=== PATIENT | male | born 1945 | race Caucasian/White ===

== ENCOUNTER 2017-12-31 05:43 | Day surgery (SDC) | payer BC ==
[2017-12-31 06:42] LABS: ADD MAN DIFF? NO
[2017-12-31 06:45] LABS: BASOPHIL # 0.1 10^3/ul (0.0-0.1); BASOPHILS % 1.4 % (0.0-2.0); EOSINOPHILS # 0.2 10^3/ul (0.0-0.5); EOSINOPHILS % 3.1 % (0.0-7.0); HEMATOCRIT 38.4 % (42.0-52.0); HEMOGLOBIN 12.4 g/dl (14.0-18.0); LYMPHOCYTES # 1.6 10^3/ul (0.8-2.9); LYMPHOCYTES % 30.9 % (15.0-51.0); MEAN CORPUSCULAR HEMOGLOBIN 27.6 pg (29.0-33.0); MEAN CORPUSCULAR HGB CONC 32.3 g/dl (32.0-37.0); MEAN CORPUSCULAR VOLUME 85.5 fl (82.0-101.0); MEAN PLATELET VOLUME 11.1 fl (7.4-10.4); MONOCYTE # 0.5 10^3/ul (0.3-0.9); MONOCYTES % 9.7 % (0.0-11.0); NEUTROPHIL # 2.8 10^3/ul (1.6-7.5); NEUTROPHILS % 54.3 % (39.0-77.0); PLATELET COUNT 173 10^3/UL (140-415); RED BLOOD COUNT 4.49 10^6/ul (4.70-6.10); RED CELL DISTRIBUTION WIDTH 16.2 % (11.5-14.5)
[2017-12-31 06:45] LABS: WHITE BLOOD COUNT 5.2 10^3/ul (4.8-10.8)
[2017-12-31] MEDS ORDERED: ASPIRIN 325 MG TAB PO (07:00)
[2017-12-31] MEDS ORDERED: NACL 0.9% 3 ML SYG IV ×2 (07:00)
[2017-12-31] MEDS ORDERED: ASPIRIN 300 MG SUPP PR (07:00)
[2017-12-31 07:03] LABS: INR 1.01; PROTIME 13.4 Sec (11.9-14.9)
[2017-12-31 07:04] LABS: PARTIAL THROMBOPLASTIN TIME 27.5 Sec (25.0-35.0)
[2017-12-31 07:21] LABS: ANION GAP 13 (8-16); BLOOD UREA NITROGEN 24 mg/dl (7-20); CALCIUM 8.9 mg/dl (8.4-10.2); CARBON DIOXIDE 25 mmol/L (21-31); CHLORIDE 108 mmol/L (97-110); CREATININE 1.33 mg/dl (0.61-1.24); GLUCOSE 91 mg/dl (70-220); POTASSIUM 3.4 mmol/L (3.5-5.1); SODIUM 143 mmol/L (135-144)
[2017-12-31] MEDS ORDERED: FENTAnyl 50 MCG/ML VIAL (07:28)
[2017-12-31] MEDS ORDERED: MIDAZOLAM 1 MG/ML 2 ML INJ (07:28)
[2017-12-31] MEDS: ASPIRIN 325 MG TAB PO (07:30)
[2017-12-31] MEDS: MIDAZOLAM 1 MG/ML 2 ML INJ IV (07:30)
[2017-12-31] MEDS: DIAZEPAM 5 MG TAB PO (07:30)
[2017-12-31 07:57] LABS: AADO2 Arterial 6.5 mmHg (7.0-24.0); Arterial Base Excess 0.3 mmol/L (-3.0-3); Arterial Blood Gas Oxygen Sat 96.2 mmHG (95.0-100.0); Arterial COHb 0.3 % (0.0-3.0); Arterial Fraction of Oxyhgb 95.7 % (93.0-99.0); Arterial HCO3 25.8 mmol/L (22.0-26.0); Arterial MetHb 0.2 % (0.0-1.5); Arterial Total Hemglobin 12.1 g/dl (12.0-18.0); Arterial pCO2 45.1 mmhg (35-45); MODE ROOM AIR; Site A-Line
[2017-12-31 08:08] LABS: Arterial COHb 0.3 % (0.0-3.0); Arterial Fraction of Oxyhgb 73.7 % (93.0-99.0); Arterial MetHb 0.1 % (0.0-1.5); Arterial Total Hemglobin 12.8 g/dl (12.0-18.0); MODE ROOM AIR; Sample Type BLMV; Site OTHER
[2017-12-31] MEDS ORDERED: NITROGLYCERIN (SL) 0.4 MG TAB (08:09)
[2017-12-31] MEDS ORDERED: LIDOCAINE 1% (MDV) 10 ML INJ (08:11)
[2017-12-31] MEDS ORDERED: IODIXANOL LOCM 100 ML BTL (08:11)
[2017-12-31] MEDS ORDERED: ONDANSETRON 4 MG INJ IV (09:00)
[2017-12-31] MEDS ORDERED: ACETAMINOPHEN 325 MG TAB PO (09:00)
[2017-12-31] MEDS ORDERED: morphine 2 MG INJ IV (09:00)
[2017-12-31] MEDS: SOD CHLORIDE 0.9% 1,000 ML IV (09:31)
== END 2017-12-31 15:02 | disposition home or self-care (01) ==
LOC: SDS 05:43
DX: I35.1 Nonrheumatic aortic (valve) insufficiency (principal); I10 Essential (primary) hypertension; G47.33 Obstructive sleep apnea (adult) (pediatric)
CPT/HCPCS: 36600; 71045; 80048; 82803; 85025; 85610; 85730; 93005; 93460